=== PATIENT | female | born 1990 | race African-American/Black ===

== ENCOUNTER 2017-08-31 09:29 | Emergency (ER) | payer MEDICAID, OTHER ==
[~2017-08-31] VITALS: Ht 162.6 cm; Wt 46.0 kg
[~2017-08-31 09:29] MED LIST: AMOX875T PO; DIFL150T PO; IBUP-232 PO; LEVA500T PO; MMW SS; MUPI2%T TOPICAL; TRAM50 PO; ZOFR4TAB3 SL
[2017-08-31 09:49] VITALS: BP 161/98; PULSE 68; RESP 14; TEMP 98.2; O2SAT 99
[2017-08-31] MEDS ORDERED: IBUP1TAB7 PO (10:28)
[2017-08-31] MEDS ORDERED: LIDOCAINE HCL 1% 50 ML VIAL INFIL ONE (11:00)
[2017-08-31] MEDS ORDERED: CEPH-460 PO (11:19)
[2017-08-31] MEDS ORDERED: BACT800T5 PO (11:19)
--- NOTE | 2017-08-31 11:27 | PD ---
HPI . Left axilla abscess Chief Complaint: Skin Problem Time Seen by Provider: 10:23 Travel History International Travel<30 days: No Contact w/Intl Traveler<30days: No Traveled to known affect area: No History of Present Illness HPI 26-year-old female patient presents emergency department for a patient of abscess to her left axilla. Patient states that she is having the pain for the last couple days but noticed the abscess yesterday. Patient has any fever, chills, malaise, chest pain, shortness breath, nausea, vomiting, diarrhea, lightheadedness. Patient denies any major medical history. Patient doesn't take any daily medication. PFSH Past Medical History Neurologic: Yes (RIGHT SIDED BRAIN "CYSTS" A CHILD) Influenza Vaccination: No ?: Not LMP: 08/11/17 Menopausal: No : 1 Para: 1 Miscarriage: 0 : 0 Past Surgical History Surgical History: No Previous Surgery Social History Alcohol Use: No Tobacco Use: Yes (1 PPD) Substance Use: No Allergies-Medications (Allergen,Severity, Reaction): Coded Allergies: No Known Allergies (Verified Adverse Reaction, Unknown, 08/31/17) Reported Meds & Prescriptions Reported Meds & Active Scripts Active Reported Ibuprofen 800 Mg Tab 800 Mg PO BID PRN Review of Systems Except as stated in HPI: all other systems reviewed are Neg Physical Exam Narrative GENERAL: Well-nourished, well-developed 26 year old female patient in no acute distress. Nontoxic appearing. SKIN: There is an indurated area in the left axilla which measures about 2 cm in diameter. It is fluctuant but there is no pointing or drainage. There is a zone of inflammation around it but no lymphangitis. HEAD: Normocephalic. Atraumatic. EYES: No scleral icterus. No injection or drainage. NECK: Supple, trachea midline. No JVD or lymphadenopathy. CARDIOVASCULAR: Regular rate and rhythm without murmurs, gallops, or rubs. RESPIRATORY: Breath sounds equal bilaterally. No accessory muscle use. GASTROINTESTINAL: Abdomen soft, non-tender, nondistended. MUSCULOSKELETAL: No cyanosis, or edema. BACK: Nontender without obvious deformity. No CVA tenderness. Data Data Last Documented VS Vital Signs Date Time Temp Pulse Resp B/P (MAP) Pulse Ox O2 Delivery O2 Flow Rate FiO2 08/31/17 09:49 98.2 68 14 161/98 (119) 99 Orders Orders Lidocaine 1% Inj (50 Ml) (Xylocaine 1% I (08/31/17 11:00) [facility] Medical Decision Making Medical Screen Exam Complete: Yes Emergency Medical Condition: Yes Differential Diagnosis Differential diagnoses include but not limited to abscess, cellulitis, folliculitis Narrative Course 26-year-old female patient presents emergency department for evaluation of abscess to her left axilla. I&D performed. Please see my procedural narrative. Patient discharged home with prescription for Bactrim and Keflex instructed to apply warm moist compresses to the area 3-4 times a day. Patient is given a return to the emergency department 2 days for wound recheck. Procedures Procedure Narrative INCISION AND DRAINAGE OF ABSCESS: The area was prepped and was sterilely draped. A subcutaneous wheal of 1 % Xylocaine with a total number 5 mL was used to anesthetize the area properly. A number 11 scalpel was used to make a 1 -cm incision across the area of the abscess. The abscess was drained, complex loculations were broken down, and irrigated with normal saline. Cultures were obtained. Sterile dressing applied. Patient advised to keep dressing clean and dry and return to the emergency department 2 days for wound recheck. Diagnosis Primary Impression: Abscess Referrals: Primary Care Physician Patient Instructions: Abscess (GEN), Abscess Incision and Drainage (DC), General Instructions Additional Instructions: Please return to emergency department if your symptoms return or worsen. Follow up with your primary care provider. Take medications as prescribed. Bactrim is free at [facility]. Apply warm moist compression 3 to 4 times a day to help facilitate drainage. May take ibuprofen or Tylenol as needed for pain or fevers. Med/Other Pt SpecificInfo: Prescription(s) given Scripts Cephalexin (Keflex) 500 Mg Cap 500 MG PO Q6H for Infection for 10 Days, #40 CAP 0 Refills Prov: Debbie Freeman 08/31/17 Sulfamethoxazole-Trimethoprim (Bactrim DS) 800-160 Mg Tab 1 TAB PO BID for Infection for 10 Days, #20 TAB 0 Refills Prov: Debbie Freeman 08/31/17 Disposition: 01 DISCHARGE HOME Condition: Stable Debbie Freeman Aug 31, 2017 11:27
== END 2017-08-31 11:58 | disposition home or self-care (01) ==
LOC: NEPD 09:29
DX: L02.412 Cutaneous abscess of left axilla (principal); F17.210 Nicotine dependence, cigarettes, uncomplicated
CPT/HCPCS: 10060; 86403; 87070